=== PATIENT | female | born 1960 | race Caucasian/White ===

== ENCOUNTER → 2016-05-31 | Outpatient (CLI) | payer BC ==
[~2016-05-31] MED LIST: ATEN-36 PO; BUPR150T PO; CALC-522 PO; MULT-934 PO; PARO40TA PO; SUMA20SP NS; SUMA50TA PO
== END ==
LOC: WC.BC 10:44
DX: Z12.31 Encounter for screening mammogram for malignant neoplasm of breast (principal); Z80.3 Family history of malignant neoplasm of breast
CPT/HCPCS: 77063; G0202